=== PATIENT | female | born 1975 | race Caucasian/White ===

== ENCOUNTER 2020-11-14 07:03 | Day surgery (SDC) | payer OTHER, SELFPAY ==
[~2020-11-14] VITALS: Ht 167.6 cm; Wt 74.8 kg
[2020-11-14] MEDS ORDERED: diphenhydrAMINE 50 MG/ML VIAL ONE (08:16)
[2020-11-14] MEDS ORDERED: fentaNYL citrate 0.05 MG/ML VIAL ONE (08:16)
[2020-11-14] MEDS ORDERED: MIDAZOLAM 5 MG/5 ML VIAL ONE (08:17)
[2020-11-14] MEDS ORDERED: fentaNYL citrate 0.05 MG/ML VIAL IVP ONE (09:50)
[2020-11-14] MEDS ORDERED: MIDAZOLAM 2 MG/2 ML VIAL IVP ONE (09:50)
== END 2020-11-14 10:25 | disposition home or self-care (01) ==
LOC: MMU 07:03 → MDS 07:03
PROVIDERS: ATTEND Internal Medicine Gastroenterology
DX: K59.00 Constipation, unspecified (principal); K27.9 Peptic ulcer, site unspecified, unspecified as acute or chronic, without hemorrhage or perforation; Z80.0 Family history of malignant neoplasm of digestive organs
CPT/HCPCS: 43239; 45378; 81025; 87426; 88305; 88312; 88313; 88342; J2250; J3010; J1200